=== PATIENT | male | born 1930 | race Caucasian/White ===

== ENCOUNTER 2018-04-14 18:31 | Inpatient (IN) | payer OTHER, MEDICARE ==
[~2018-04-14] VITALS: Ht 180.3 cm; Wt 74.9 kg
--- NOTE | ~2018-04-14 | EKG ---
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 04/15/18 [id number] Anderson Kemp MD, [facility] /EPI
[2018-04-14 18:31] VITALS: BP 102/52
[~2018-04-14 18:31] MED LIST: ALLOPURINOL 10100 M1 PO; ATENOLOL-CHLOR1 EAC1 PO; LIPITOR 20 MG T20 M1 PO; LISINOPRIL10 MG PO; NORCO 5-325 TA1 EACH PO
[2018-04-14 18:55] LABS: ABSOLUTE NEUTROPHILS 7.7 thou/uL (1.4-8.2); BASOPHILS 0.2 % (0.0-2.0); HEMATOCRIT 38.3 % (42.0-52.0); HEMOGLOBIN 13.2 gm/dL (14.0-18.0); LYMPHOCYTES 8.5 % (24.0-44.0); MCH 33.2 pg (26.0-34.0); MCHC 34.5 g/dL (28.0-37.0); MCV 96.4 fL (80.0-100.0); MONOCYTES 4.5 % (1.0-8.0); PLATELET COUNT 171 thou/uL (150-400); POLYS 86.8 % (36.0-66.0); RBC 3.97 mil/uL (4.50-6.00); RDW 14.3 % (10.5-14.5); WBC 8.9 thou/uL (4.0-11.0)
[2018-04-14 19:02] LABS: CALCIUM 9.2 mg/dL (8.5-10.1); CREATININE 1.9 mg/dL (0.7-1.3); POTASSIUM 3.6 mmol/L (3.5-5.1)
[2018-04-14 19:08] LABS: ALBUMIN 2.9 g/dL (3.4-5.0); TOTAL BILIRUBIN 0.6 mg/dL (<0.1-1.0); TOTAL PROTEIN 6.9 g/dL (6.4-8.2)
[2018-04-14 19:23] LABS: URINE BILIRUBIN NEGATIVE (Negative); URINE BLOOD 3+ (Negative); URINE CLARITY CLEAR; URINE COLOR YELLOW; URINE GLUCOSE-RANDOM* NEGATIVE (Negative); URINE KETONES TRACE (Negative); URINE PROTEIN (DIPSTICK) 1+ (Negative); URINE SPECIFIC GRAVITY 1.025 (1.005-1.035); URINE UROBILINOGEN 0.2 E.U./dl (0.2-1.0)
[2018-04-14 19:24] LABS: URINE LEUKOCYTES-REFLEX 3+ (Negative); URINE NITRITE-REFLEX POSITIVE (Negative)
[2018-04-14 19:46] LABS: BACTERIA-REFLEX >30 Many /HPF (None Seen); CRYSTALS None Seen /LPF (None Seen); HYALINE CASTS 0-3 Few /LPF (None Seen); SQUAMOUS 4-10 Moderate /LPF (0-3); URINE RBC 3-10 Few /HPF (0-2); URINE WBC-REFLEX >25 Many /HPF (0-5); WBC CLUMPS Moderate (None Seen)
[2018-04-14 19:55] VITALS: BP 90/47
[2018-04-14] MEDS ORDERED: ATENOLOL 25 MG25 M1 PO (21:33)
[2018-04-14] MEDS ORDERED: CHLORTHALIDONE25 MG PO (21:33)
[2018-04-14] MEDS ORDERED: CIPRO250 M1 PO (21:35)
[2018-04-14 23:45] VITALS: BP 82/46
[2018-04-15] VITALS (9 sets, daily range): BP systolic 80–107; BP diastolic 50–61
[2018-04-15 06:00] LABS: HEMATOCRIT 33.8 % (42.0-52.0); HEMOGLOBIN 11.5 gm/dL (14.0-18.0); MCH 32.9 pg (26.0-34.0); MCV 96.7 fL (80.0-100.0); RBC 3.5 mil/uL (4.50-6.00); RDW 14.5 % (10.5-14.5); WBC 15.7 thou/uL (4.0-11.0)
[2018-04-15 06:33] LABS: ANION GAP 9 mmol/L (7-16); BUN 33 mg/dL (7-18); CHLORIDE 106 mmol/L (98-107); CHOLESTEROL 90 mg/dL (<200); CO2 25 mmol/L (21-32); CREATININE 1.5 mg/dL (0.7-1.3); GLUCOSE 117 mg/dL (74-106); HDL CHOLESTEROL 35 mg/dL (>40); LDL CHOLESTEROL 43 mg/dL (<100); POTASSIUM 3.8 mmol/L (3.5-5.1); SODIUM 140 mmol/L (136-145); TC:HDL 2.6 Ratio (Not establshd); TRIGLYCERIDE 63 mg/dL (<150); VLDL 13 mg/dL (<40)
[2018-04-15 06:34] LABS: SERUM ASSESSMENT Clear
[2018-04-16 04:40] VITALS: BP 104/63
[2018-04-16 06:00] LABS: ABSOLUTE NEUTROPHILS 6.6 thou/uL (1.4-8.2); BASOPHILS 0.3 % (0.0-2.0); EOSINOPHILS 0.1 % (0.0-3.0); HEMOGLOBIN 11.7 gm/dL (14.0-18.0); LYMPHOCYTES 8.4 % (24.0-44.0); MCH 33.3 pg (26.0-34.0); MCHC 34.3 g/dL (28.0-37.0); MCV 97.1 fL (80.0-100.0); MONOCYTES 8.8 % (1.0-8.0); PLATELET COUNT 140 thou/uL (150-400); POLYS 82.4 % (36.0-66.0); RDW 14.2 % (10.5-14.5)
[2018-04-16 06:09] LABS: CALCIUM 7.9 mg/dL (8.5-10.1); CREATININE 1.4 mg/dL (0.7-1.3); MAGNESIUM 1.7 mg/dL (1.8-2.4); POTASSIUM 3.1 mmol/L (3.5-5.1)
[2018-04-16 06:38] LABS: FOLIC ACID 19.1 ng/mL (8.6-58.9)
[2018-04-16 11:36] VITALS: BP 104/65
[2018-04-16 19:52] VITALS: BP 93/54
[2018-04-17 07:30] VITALS: BP 109/64
[2018-04-17 07:38] LABS: CALCIUM 7.8 mg/dL (8.5-10.1); CREATININE 1.2 mg/dL (0.7-1.3); POTASSIUM 3.2 mmol/L (3.5-5.1)
[2018-04-17 21:04] VITALS: BP 119/73
[2018-04-18 07:55] VITALS: BP 106/66
[2018-04-18] MEDS ORDERED: MACROBID 100 M100 M3 PO (11:23)
[2018-04-18 14:09] VITALS: BP 106/66
== END 2018-04-18 14:54 | disposition home or self-care (01) | DRG 871 ==
LOC: ER 18:31 → EROBS 19:44 → 3W 19:44 → SICU 04-16 19:21
PROVIDERS: Hospitalist; Nurse Practitioner Family; Physician Assistant
DX: A41.9 Sepsis, unspecified organism (principal); R65.21 Severe sepsis with septic shock; N17.0 Acute kidney failure with tubular necrosis; N39.0 Urinary tract infection, site not specified; N17.9 Acute kidney failure, unspecified; I10 Essential (primary) hypertension; M10.9 Gout, unspecified; E78.5 Hyperlipidemia, unspecified; R63.4 Abnormal weight loss; E87.6 Hypokalemia; B96.20 Unspecified Escherichia coli [E. coli] as the cause of diseases classified elsewhere; Z79.899 Other long term (current) drug therapy; Z88.0 Allergy status to penicillin; Z68.23 Body mass index [BMI] 23.0-23.9, adult
CPT/HCPCS: 10879; 15002